=== PATIENT | female | born 1990 | race Two or more races ===

== ENCOUNTER 2018-10-18 20:10 | Observation (INO) | payer OTHER ==
[~2018-10-18] VITALS: Ht 160 cm; Wt 105.2 kg
[2018-10-18] MEDS ORDERED: D5W/LACTATED RINGERS 1,000 ML IV SCH (20:15)
[2018-10-18] MEDS ORDERED: PREN-145 OR (20:41)
[2018-10-18] MEDS ORDERED: ASPI-231 PO (20:41)
[2018-10-18] MEDS ORDERED: ONDANSETRON HCL 4 MG/2 ML VIAL IV PRN (21:00)
[2018-10-18] MEDS ORDERED: LACTATED RINGER'S 2,000 ML IV ONE (21:00)
[2018-10-18 23:30] LABS: Albumin 2.6 g/dL (3.4-5.0); BUN/Creatinine Ratio 11.5; Calcium 7.7 mg/dL (8.5-10.1); Potassium 3.5 mmol/L (3.5-5.1)
[2018-10-18 23:39] LABS: Urine Bacteria FEW /hpf (None Seen); Urine Blood Negative /uL (Negative); Urine Mucus FEW (None Seen); Urine Specific Gravity 1.025 (1.001-1.035); Urine WBC 2 /hpf (0 - 5)
[2018-10-18 23:44] LABS: Bilirubin, Total 0.5 mg/dL (0.2-1.0)
[2018-10-18 23:49] LABS: Alcohol, Urine < 3.0 mg/dL (0-5); Amphetamine Screen, Urine NEGATIVE (NEGATIVE); Barbiturate Scree,Urine NEGATIVE (NEGATIVE); Benzodiazephine Screen, Urine NEGATIVE (NEGATIVE); Cannabinoid Screen, Urine NEGATIVE (NEGATIVE); Cocaine Screen, Urine NEGATIVE (NEGATIVE); Opiate Scree,Urine NEGATIVE (NEGATIVE); Phencyclidine Screen, Urine NEGATIVE (NEGATIVE)
== END 2018-10-19 00:13 | disposition home or self-care (01) | DRG 833 ==
LOC: LDRP 20:10
PROVIDERS: ADMIT Specialist; ATTEND Specialist
DX: O21.2 Late vomiting of pregnancy (principal); O26.892 Other specified pregnancy related conditions, second trimester; R06.02 Shortness of breath; R10.9 Unspecified abdominal pain; Z3A.20 20 weeks gestation of pregnancy
CPT/HCPCS: 36415; 59025; 80053; 80307; 81001; 81002; 96374; G0378; J2405; 96365; 96366